=== PATIENT | male | born 1960 ===

== ENCOUNTER 2016-09-09 17:38 | Inpatient (IN) | payer MEDICARE, OTHER ==
[~2016-09-09] VITALS: Ht 175.3 cm; Wt 62.6 kg
[2016-09-09] MEDS ORDERED: DIPH50CA4 PO (18:18)
--- NOTE | 2016-09-09 19:25 | NUR ---
Pt out of unit for ct scan via [facility]
--- NOTE | 2016-09-09 19:35 | NUR ---
Pt back from ct scan with no distress noted
[2016-09-09 19:54] LABS: BASOPHILS % (AUTO) 0.4 % (0.0-2.0); EOSINOPHILS # (AUTO) 0.1 K/uL (0.0-0.7); EOSINOPHILS % (AUTO) 1.7 % (0.0-7.0); HEMATOCRIT 43.1 % (36.7-47.1); HEMOGLOBIN 14.9 g/dL (12.5-16.3); LYMPHOCYTES % (AUTO) 29.7 % (20.5-51.5); MEAN CORPUSCULAR HEMOGLOBIN 30.7 uug (23.8-33.4); MEAN CORPUSCULAR HGB CONC 35 g/dL (32.5-36.3); MEAN CORPUSCULAR VOLUME 88.6 fL (73.0-96.2); MONOCYTES # (AUTO) 0.4 K/uL (2.0-10.0); MONOCYTES % (AUTO) 5.7 % (0.0-11.0); NEUTROPHILS # (AUTO) 4.4 K/uL (1.8-8.9); NEUTROPHILS % (AUTO) 62.5 % (38.5-71.5); PLATELET COUNT (AUTO) 298 K/uL (152-348); RED BLOOD CELL COUNT(AUTO) 4.86 MIL/uL (4.06-5.63); RED CELL DISTRIBUTION WIDTH 12.5 % (12.1-16.2); WHITE BLOOD COUNT (AUTO) 6.9 K/uL (3.6-10.2)
[2016-09-09 19:57] LABS: CALCIUM 8.6 mg/dL (8.5-10.1); CARBON DIOXIDE 31 mmol/L (21-32); CHLORIDE 107 mmol/L (98-107); CREATININE 0.9 mg/dL (0.6-1.3); GFR 87 mL/min (>60); GLUCOSE 104 mg/dL (74-106); POTASSIUM 4.2 mmol/L (3.5-5.1); SODIUM SERUM 143 mmol/L (136-145); UREA NITROGEN, BLOOD 22 mg/dL (7-18)
[2016-09-09 20:03] LABS: AMMONIA 18 umol/L (11-32)
[2016-09-09 20:03] LABS: *BILIRUBIN,URIN NEGATIVE (NEGATIVE); *BLOOD, URINE 1+ (NEGATIVE); *CLARITY,URINE CLOUDY (CLEAR); *COLOR,URINE YELLOW (YELLOW); *KETONES,URINE NEGATIVE (NEGATIVE); *PROTEIN,URINE NEGATIVE (NEGATIVE); *UROBILINOGEN,URINE 0.2 E.U./dl (NORMAL); LEUKOCYTE ESTERASE ,URINE NEGATIVE (NEGATIVE); UGLUCOSE NEGATIVE (NEGATIVE)
[2016-09-09 20:04] LABS: TROPONIN I < 0.017 ng/mL (0.00-0.056)
[2016-09-09 20:05] LABS: ETHANOL < 3 MG/DL (0-0)
[2016-09-09 20:13] LABS: ALANINE AMINOTRANSFERASE 35 U/L (16-63); ALBUMIN 3.6 g/dL (3.4-5.0); ALKALINE PHOSPHATASE 59 U/L (50-136); ASPARTATE AMINOTRANSFERASE 22 U/L (15-37); BILIRUBIN,DIRECT 0.1 mg/dL (0.0-0.2); BILIRUBIN,TOTAL 0.3 mg/dL (0.2-1.0)
[2016-09-09 20:14] LABS: ACETAMINOPHEN < 2.0 ug/mL (10-30)
[2016-09-09 20:15] LABS: NITRITE, URINE POSITIVE (NEGATIVE)
[2016-09-09 20:16] LABS: *AMPHETAMINE, URINE NEGATIVE (NEGATIVE); *BARBITURATE, URINE NEGATIVE (NEGATIVE); *CANNABINOID, URINE NEGATIVE (NEGATIVE); *COCCAINE, URINE NEGATIVE (NEGATIVE); *OPIATE, URINE NEGATIVE (NEGATIVE); *PHENCYCLIDINE SCREEN,URINE NEGATIVE (NEGATIVE)
[2016-09-09 20:17] LABS: BACTERIA,URINE MANY /HPF (NONE SEEN); MUCUS,URINE FEW /LPF (0-FEW); SQUAMOUS EPITHELIAL CELL,UR FEW /HPF (NONE SEEN)
[2016-09-09 20:19] LABS: LACTIC ACID 0.6 mmol/L (0.4-2.0)
--- NOTE | 2016-09-09 20:23 | NUR ---
Medically cleared by Dr Ruiz
--- NOTE | 2016-09-09 20:34 | NUR ---
Arnie Grimes will eval Pt as Dr Ruiz requested. ETA 1hr
--- NOTE | 2016-09-09 21:40 | NUR ---
Arnie Grimes into eval Patient
--- NOTE | 2016-09-09 23:17 | NUR ---
[facility]
[2016-09-09 23:31] VITALS: BP 123/89
[2016-09-09] MEDS ORDERED: MAGNESIUM HYDROXIDE 30 ML LIQUID UDC PO PRN (23:45)
[2016-09-09] MEDS ORDERED: ACETAMINOPHEN 325 MG TABLET PO PRN (23:45)
[2016-09-09] MEDS ORDERED: LORAZEPAM 1 MG TABLET PO PRN (23:45)
[2016-09-09] MEDS ORDERED: MAG HYDROX/AL HYDROX/SIMETH 30 ML LIQUID UDC PO PRN (23:45)
[2016-09-10] MEDS ORDERED: TEMAZEPAM 7.5 MG CAPSULE ONE (00:01)
[2016-09-10] MEDS: TEMAZEPAM 7.5 MG CAPSULE PO PRN (00:09)
--- NOTE | 2016-09-10 05:25 | NUR ---
Admit Note GPS/NSG Patient is a 56 yr old male admitted to [facility] on a 5150 for Grave Disability under the care of Dr. Duong and Dr. Gibson. Medically cleared by ER after patient arrived from [facility]. Patient was sent for evaluation, patient according to the hold has been unmanageable with periods when he cries hopelessly, also indicates patient has become paranoid. Upon admission patient Patient's appearance poor, disheveled and unkempt. presented alert, oriented to name, place and time however unable to verbalize accurate responses to interview questions. Cooperative, malay speaker with pressured speech, patient with labile mood suffered three episodes with increased anxiety as well as crying inconsolably stating that he had a daughter that he was unable to care for. Patient displayed unsteady gait, limited to the ability to transfer, patient appeared to have generalized weakness with contractures of both hand and tremors, upon physical assessment one abrasion/scratch noted on left side of shoulder otherwise skin intact. Patient admitted to having a sister whom he did not communicate with due to lack of interaction through the years. Patient oriented to room, belongings logged. prn administered for insomnia with effective outcome. Continue to monitor for safety. Addendum: 09/10/16 at 0717 by RASHEEDA RODRIGUEZ RN GÉNESIS CONTACTED, PER REPORT PATIENT HAS NO FAMILY AND THESE ARE HIS CLOSE FRIENDS. GÉNESIS STATED SHE WAS PART OF A [employer] GROUP FOR [employer] THAT LIVED IN THE SAME PLACE PATIENT AND STATED THAT PATIENT WAS FALLING FREQUENTLY AND NEEDED EXTRA HELP FOR SAFETY.
[2016-09-10 08:00] VITALS: BP 116/86
[2016-09-10] MEDS ORDERED: diphenhydrAMINE 50 MG CAPSULE PO SCH (11:00)
[2016-09-10 16:10] VITALS: BP 115/86
[2016-09-10 20:29] VITALS: BP 136/92
[2016-09-10] MEDS: SULFAMETH/TRIMETH 800/160 MG TABLET PO SCH (20:48)
[2016-09-10] MEDS: QUETIAPINE FUMARATE 25 MG TABLET PO SCH (20:48)
[2016-09-11 07:30] VITALS: BP 102/74
[2016-09-11] MEDS: SULFAMETH/TRIMETH 800/160 MG TABLET PO SCH ×2 (08:45→20:01)
[2016-09-11] MEDS: QUETIAPINE FUMARATE 25 MG TABLET PO SCH ×2 (08:45→20:01)
[2016-09-11 15:23] VITALS: BP 112/84
[2016-09-11 20:09] VITALS: BP 108/83
--- NOTE | 2016-09-11 21:41 | NUR ---
PATIENT IS AWAKE IN BED, PLEASANT UPON APPROACH. PATIENT ISOLATIVE/WITHDRAWN,CALM AND ABLE TO LET NEEDS KNOWN. NO AGITATION OR BEHAVIORAL ISSUES AT THIS TIME. WILL CONTINUE TO MONITOR PATIENT HAD AN EPISODE WITH DEPRESSION,CRYING. PATIENT COMPLAINT WITH HS MEDICATION. BED IN LOWEST POSITION, BED LOCKED, AND BED ALARM ON WHILE IN BED. PATIENT ENCOURAGED TO VERBALIZE FEELINGS AND CONCERNS.
[2016-09-12] MEDS: TEMAZEPAM 7.5 MG CAPSULE PO PRN (00:52)
[2016-09-12 07:30] VITALS: BP 113/79
[2016-09-12] MEDS: SULFAMETH/TRIMETH 800/160 MG TABLET PO SCH ×2 (08:17→20:01)
[2016-09-12] MEDS: QUETIAPINE FUMARATE 25 MG TABLET PO SCH ×2 (08:18→20:01)
--- NOTE | 2016-09-12 13:27 | NUR ---
Initial discharge instructions: Patient resides at [facility] [[address],[address];[phone]].[place] spoke with Robyn at the facility who stated the patient may return once stable.Per Robyn,he has no family to contact and only a friend-Ramona [phone].SW will speak with patient and MD regarding appropriate discharge plans.SW will form a safe and proper discharge.
[2016-09-12 15:00] VITALS: BP 115/77
[2016-09-12 20:28] VITALS: BP 133/94
--- NOTE | 2016-09-12 21:45 | NUR ---
PATIENT RECEIVED IN [facility] CHAIR SECURED IN FRONT OF NURSING STATION. PATIENT PLEASANT UPON APPROACH, ABLE TO MAKE NEEDS KNOWN. PATIENT DENIES SI, WILL CONTINUE TO MONITOR. PATIENT COMPLAINT WITH HS MEDICATION. NO EPISODES OF CRYING NOTED WILL CONTINUE TO MONITOR. PATIENT ENCOURAGED TO VERBALIZES FEELINGS AND CONCERNS.
[2016-09-13 07:19] LABS: BASOPHILS % (AUTO) 0.4 % (0.0-2.0); EOSINOPHILS # (AUTO) 0.1 K/uL (0.0-0.7); LYMPHOCYTES # (AUTO) 1.7 K/uL (20.0-40.0); LYMPHOCYTES % (AUTO) 19.9 % (20.5-51.5); MEAN CORPUSCULAR HGB CONC 35 g/dL (32.5-36.3); MEAN CORPUSCULAR VOLUME 88.9 fL (73.0-96.2); MONOCYTES # (AUTO) 0.5 K/uL (2.0-10.0); MONOCYTES % (AUTO) 6.6 % (0.0-11.0); NEUTROPHILS % (AUTO) 72.1 % (38.5-71.5); PLATELET COUNT (AUTO) 268 K/uL (152-348); RED BLOOD CELL COUNT(AUTO) 5.17 MIL/uL (4.06-5.63); RED CELL DISTRIBUTION WIDTH 12.9 % (12.1-16.2); WHITE BLOOD COUNT (AUTO) 8.3 K/uL (3.6-10.2)
[2016-09-13 07:30] VITALS: BP 130/91
[2016-09-13 07:36] LABS: CALCIUM 8.7 mg/dL (8.5-10.1); CREATININE 1.1 mg/dL (0.6-1.3); POTASSIUM 3.9 mmol/L (3.5-5.1)
[2016-09-13] MEDS: SULFAMETH/TRIMETH 800/160 MG TABLET PO SCH ×2 (08:05→20:30)
[2016-09-13] MEDS: QUETIAPINE FUMARATE 25 MG TABLET PO SCH ×2 (08:05→20:31)
[2016-09-13 08:06] LABS: HOMOCYSTEINE, PLASMA 7.3 umol/L (0.0-15.0)
[2016-09-13 15:01] VITALS: BP 164/79
[2016-09-13] MEDS: ATORVASTATIN 10 MG TABLET PO SCH (20:30)
[2016-09-13 20:36] VITALS: BP 123/83
--- NOTE | 2016-09-13 21:00 | NUR ---
Patient received in wheelchair in day room watching tv. Pt is pleasant upon approach. Observed to be responding to internal stimuli, laughing to self. No aggressive/combative behavior noted. Pt is disoriented. No acute distress noted. Safety measures maintained.
--- NOTE | 2016-09-14 06:36 | NUR ---
pt slept well through out the night. Assisted with shower this morning by staff. No acute distress noted. safety measures maintained.
[2016-09-14 07:30] VITALS: BP 114/82
[2016-09-14] MEDS: QUETIAPINE FUMARATE 25 MG TABLET PO SCH ×2 (08:06→21:06)
[2016-09-14] MEDS: SULFAMETH/TRIMETH 800/160 MG TABLET PO SCH ×2 (08:07→21:05)
--- NOTE | 2016-09-14 10:20 | NUR ---
WEEKLY MEETING PO INTAKE 75-100% ON REGULAR DIET, NO DIET RECOMMENDATIONS AT THIS TIME LAST BM ON 09/11, REC BOWEL REGIMEN SKIN INTACT NOTED 3 LB WEIGHT GAIN IN 3 DAYS, MOST LIKELY ERROR D/T DIFFERENT MEASUREMENT METHODS MEDS: LIPITOR LABS: LDL 124 (H) MONITOR PO INTAKE, LABS, WEIGHT NO NUTRITION DIAGNOSIS AT THIS TIME Addendum: 09/14/16 at [address] Amended: Links added.
[2016-09-14 16:00] VITALS: BP 119/85
[2016-09-14 20:15] VITALS: BP 122/91
--- NOTE | 2016-09-14 21:00 | NUR ---
Pt received in day room watching TV. Observed to be internally preoccupied, laughing to self at times. no acute distress noted. Safety measures maintained.
[2016-09-14] MEDS: ATORVASTATIN 10 MG TABLET PO SCH (21:06)
[2016-09-15 07:30] VITALS: BP 120/77
[2016-09-15] MEDS: SULFAMETH/TRIMETH 800/160 MG TABLET PO SCH ×2 (08:06→20:13)
[2016-09-15] MEDS: QUETIAPINE FUMARATE 25 MG TABLET PO SCH ×2 (08:06→20:13)
--- NOTE | 2016-09-15 10:34 | NUR ---
DC Note: Patient will be discharged back to [facility] [[address], [place] [address]; ] via private transportation at 6:00 pm. Spoke with Robyn at the facility who stated she would accept the patient today. Robyn reported the patient would be picked up by the facility today. Patient is aware and agreeable with discharge plans. Patient will follow-up with (Aircraft Engine Technician) and (Psychiatrist) at the facility.
[2016-09-15 13:13] LABS: METHYLMALONIC ACID 95 nmol/L (0-378)
[2016-09-15 15:00] VITALS: BP 118/86
--- NOTE | 2016-09-15 16:00 | NUR ---
1530 Called [facility] regarding patient will be discharged back to their facility, spoke with Shamika Dela Cruz RN report given about patient stable mental/ medical condition ; medications to continue upon discharge: diagnosis- RN, Shamika verbalized understanding. Patient will be picked up by SNF transportation at 1800.
[2016-09-15] MEDS: ATORVASTATIN 10 MG TABLET PO SCH (20:13)
--- NOTE | 2016-09-15 20:20 | NUR ---
Patient discharged to [facility] via wheelchair, excelsior picker staff from [facility]. Pt cooperative and compliant. vital signs stable prior to discharge. Belongings sent with patient. No acute distress noted. afercare instructions with patient. Off unit at 2014.
== END 2016-09-15 20:15 | DRG 885 ==
LOC: ER 17:41 → GPS 23:06
PROVIDERS: ADMIT Psychiatry & Neurology Psychiatry; ATTEND Family Medicine
DX: F29 Unspecified psychosis not due to a substance or known physiological condition (principal); N39.0 Urinary tract infection, site not specified; F03.91 Unspecified dementia, unspecified severity, with behavioral disturbance; Z73.6 Limitation of activities due to disability; M06.9 Rheumatoid arthritis, unspecified; G20 Parkinson's disease; B96.20 Unspecified Escherichia coli [E. coli] as the cause of diseases classified elsewhere; E78.5 Hyperlipidemia, unspecified; Z79.899 Other long term (current) drug therapy; G25.0 Essential tremor; M51.36 Other intervertebral disc degeneration, lumbar region; G31.9 Degenerative disease of nervous system, unspecified; R73.9 Hyperglycemia, unspecified; E67.8 Other specified hyperalimentation
CPT/HCPCS: 36415; 70030-TC; 70450; 71010; 80307; 83090; 83605; 83921; 84443; 85025; 85730; 86592; 87040; 87077; 87086; 93005; 97001; 97110; 97116; 97530; A4663; G0480-TC; G6040-TC